=== PATIENT | male | born 1975 | race Caucasian/White ===

== ENCOUNTER → 2016-09-13 | Outpatient (CLI) | payer OTHER ==
[2016-09-13 11:05] LABS: ALBUMIN/GLOBULIN RATIO 1.14 (1.00-1.93); ALKALINE PHOSPHATASE 91 U/L (45-117); ALT/SGPT 30 U/L (12-78); ANION GAP 13 MEQ/L (8-16); AST/SGOT 30 U/L (15-37); BILIRUBIN,TOTAL 0.4 MG/DL (0.2-1.0); BLOOD UREA NITROGEN 8 MG/DL (7-18); CALCIUM LEVEL 8.2 MG/DL (8.5-10.1); CARBON DIOXIDE LEVEL 24 MEQ/L (21-32); CHLORIDE LEVEL 103 MEQ/L (98-107); CREATININE FOR GFR 1.01 MG/DL (0.70-1.30); GLOMERULAR FILTRATION RATE > 60.0 (>60); GLUCOSE, FASTING 136 MG/DL (70-105); MAGNESIUM LEVEL 1.8 MG/DL (1.8-2.4); POTASSIUM SERUM 4.1 MEQ/L (3.5-5.1); SODIUM LEVEL 140 MEQ/L (136-145); TOTAL PROTEIN 7.5 GM/DL (6.4-8.2)
--- NOTE | 2016-09-13 11:58 | REP ---
Are spine series: Five views. History: Low back pain. Findings: Lumbar vertebral body heights are preserved. Alignment is normal. There is degenerative disc disease at L5-S1 with a vacuum phenomenon, spurring and sclerosis of the endplates. Mild narrowing is seen at L3-4 and L4-5 as well. Discogenic spurring is seen at L3-4 and L1-2. No bony destructive lesion is seen. Pedicles and posterior elements are intact. Psoas margins are symmetric. The sacrum and SI joints are unremarkable. Impression: Degenerative disc disease most pronounced at L5-S1. Signed by Jayesh Finney MD 09/13/2016 12:26 P
[2016-09-13 14:46] LABS: CONTROL LINE INT CTR LINE PRESENT; HIV SCRN NEGATIVE (NEGATIVE); HIV SCRN1 NEGATIVE (NEGATIVE)
--- NOTE | 2016-09-13 16:56 | ECGEPIP ---
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
== END ==
LOC: M LAB 10:00
PROVIDERS: ATTEND Nurse Practitioner Family

== ENCOUNTER → 2016-11-22 | Outpatient (CLI) | payer OTHER ==
--- NOTE | 2016-11-23 09:07 | REP ---
MRI LUMBAR SPINE WITHOUT CONTRAST: 11/22/2016. CLINICAL HISTORY: Degenerative disc disease. Back pain. COMPARISON: X-ray 09/13/2016. TECHNIQUE: Sagittal T1, T2, STIR with axial T1-T2 sequences. FINDINGS: Normal lordosis is slightly reduced as on the radiograph. Vertebral body heights and marrow signal are normal throughout the lower thoracic, entire lumbar spine and the upper sacral segments. There is disc space narrowing and discogenic endplate change with loss of disc water signal a L5-S1. Lesser degrees of disc space narrowing and loss of water signal at L1-2 and L3-4. Disc water signal and height are maintained at L2-3 and L4-5. Conus terminates at the L1-2 disc level. Minimal disc bulges at T10-11 and T11-12 without spinal or foraminal stenosis. The T12-L1 disc level was unremarkable. At L1-2, there is a mild broad-based disc bulge with central disc protrusion. This flattens ventral thecal sac but does not cause any significant stenosis. The foramina are adequate. At L2-3, there is a minimal disc bulge flattening ventral thecal sac but no spinal or foraminal stenosis. At L3-4, there is a broad-based disc bulge with some flattening of the ventral thecal sac. This abuts the L4 nerve roots in the canal. Cross-sectional area is slightly decreased. There is ligamentum hypertrophy. Foramina show loss of perineural fat and are only borderline adequate. At L4-5, mild broad-based disc bulge flattening ventral thecal sac and abutting the L5 roots in the central canal but not causing any significant spinal stenosis. Foramina show loss of perineural fat and are marginally adequate. At L5-S1, there is a broad-based disc bulge with central disc protrusion and extrusion extending inferiorly behind the S1 vertebral body. This does not cause significant central canal stenosis. The foramina show loss of perineural fat with marginal osteophytes, disc bulge. The left L5 root shows mild compression. Tight is marginally adequate. IMPRESSION: 1. Multilevel degenerative disc disease with disc bulges at every level, protrusion at L1-2 as well as at L5-S1 centrally with small extrusion extending inferiorly from that disc level in the midline. Mild stenosis only at L3-4. The central canal and foramina are marginally adequate at multiple levels due to loss of perineural fat, facet hypertrophy and marginal osteophytes. Only the left L5 root shows mild compression in the foramen. No compression fracture or other acute finding. Signed by Fer Rucker MD 11/23/2016 10:12 A
== END ==
LOC: M RAD 17:40
PROVIDERS: ATTEND Nurse Practitioner Family
DX: M51.37 Other intervertebral disc degeneration, lumbosacral region (principal)

== ENCOUNTER 2017-06-27 12:17 | Emergency (ER) | payer OTHER ==
[~2017-06-27] VITALS: Ht 170.2 cm; Wt 78.2 kg
[2017-06-27] MEDS ORDERED: OMEP40CA2 (12:29)
[2017-06-27] MEDS ORDERED: IPRA3SP (12:29)
[2017-06-27] MEDS ORDERED: ALPR2TAB3 (12:29)
--- NOTE | 2017-06-27 13:35 | ED PDOC ---
Post-Departure Follow-Up PT SITTING CALMLY IN CHAIR IN EXAM ROOM, PLAYING ON CELL PHONE UPON WALKING IN THE ROOM. PT STATES HE HAS "FLU-LIKE SYMPTOMS" AND ALSO NOTED AN AREA OF REDNESS /SWELLING ON HIS NECK THIS MORNING. STATES HE TRIED TO POP IT LIKE A PIMPLE TODAY AND COULDN'T GET ANY DRAINAGE FROM IT. PT REPEATEDLY ASKING IF "IT'S MRSA " AND "WHEN WE ARE GOING TO CUT IT OPEN". EXPLAINED TO PT MORE THAN ONCE THAT THIS DOES NOT REQUIRE INCISION AND DRAINAGE AT THIS TIME. JEANA DOMINGUEZ PA-C Jun 27, 2017 13:35
[2017-06-27] MEDS ORDERED: ZITHTAB PO (14:24)
[2017-06-27] MEDS ORDERED: TESS100C PO (14:24)
[2017-06-27 14:31] VITALS: BP 140/83
--- NOTE | 2017-06-27 20:26 | REP ---
Chest x-ray: Two views. History: Cough. Comparison study: December 08, 2015. Findings: There is a new infiltrate in the superior segment left lower lobe consistent with pneumonia. Lung mckeon are otherwise clear. Heart is not enlarged. Pulmonary vasculature is not increased. There is no evidence of pleural effusion. No significant bony abnormality is seen. Impression: Left lower lobe pneumonia. Signed by Jayesh Finney MD 06/28/2017 08:07 A
== END 2017-06-27 14:39 | disposition home or self-care (01) ==
LOC: M ED 12:17
DX: J18.1 Lobar pneumonia, unspecified organism (principal); F41.9 Anxiety disorder, unspecified; J30.89 Other allergic rhinitis; Z87.891 Personal history of nicotine dependence; Z79.899 Other long term (current) drug therapy

== ENCOUNTER → 2017-12-06 | Outpatient (CLI) | payer OTHER | LOC: M OUTALCOH 11:23 | DX: Z13.89 Encounter for screening for other disorder (principal); F10.10 Alcohol abuse, uncomplicated ==

== ENCOUNTER 2017-12-13 11:35 | Outpatient (RCR) | payer OTHER | END 2018-01-05 | LOC: M OUTALCOH 11:35 | DX: Z03.89 Encounter for observation for other suspected diseases and conditions ruled out (principal) ==

== ENCOUNTER → 2018-01-17 | Outpatient (CLI) | payer OTHER | LOC: M OUTALCOH 12:49 | DX: Z13.9 Encounter for screening, unspecified (principal); F10.20 Alcohol dependence, uncomplicated ==

== ENCOUNTER 2018-01-29 08:17 | Outpatient (RCR) | payer OTHER | END 2018-02-05 | LOC: M OUTALCOH 08:17 | DX: F10.20 Alcohol dependence, uncomplicated (principal); Z72.0 Tobacco use ==

== ENCOUNTER 2018-03-12 16:00 | Outpatient (RCR) | payer OTHER | END 2018-04-07 | LOC: M OUTALCOH 03-19 16:00 | DX: F10.20 Alcohol dependence, uncomplicated (principal); Z72.0 Tobacco use ==

== ENCOUNTER → 2018-05-07 | Outpatient (CLI) | payer OTHER | LOC: M OUTALCOH 14:27 | DX: F10.20 Alcohol dependence, uncomplicated (principal); Z72.0 Tobacco use ==

== ENCOUNTER 2018-06-04 08:02 | Outpatient (RCR) | payer OTHER | END 2018-06-07 | LOC: M OUTALCOH 08:02 | DX: F10.20 Alcohol dependence, uncomplicated (principal); Z72.0 Tobacco use ==

== ENCOUNTER 2018-07-03 16:00 | Outpatient (RCR) | payer OTHER ==
[~2018-07-03 16:00] MED LIST: ALPR2TAB3; IPRA3SP; OMEP40CA2; TESS100C PO; ZITHTAB PO
== END 2018-07-08 ==
LOC: M OUTALCOH 16:00
PROVIDERS: ATTEND Psychiatry & Neurology Psychiatry
DX: F10.20 Alcohol dependence, uncomplicated (principal); Z72.0 Tobacco use

== ENCOUNTER 2018-07-17 19:44 | Emergency (ER) | payer OTHER ==
[~2018-07-17] VITALS: Ht 170.2 cm; Wt 78.2 kg
[2018-07-17] MEDS ORDERED: NS 1,000 ML IV ONE (20:30)
[2018-07-17 20:50] LABS: ACETAMINOPHEN LEVEL < 2.0 UG/ML (10.0-30.0); BLOOD UREA NITROGEN 10 MG/DL (7-18); CALCIUM LEVEL 8.9 MG/DL (8.5-10.1); CARBON DIOXIDE LEVEL 26 MEQ/L (21-32); CHLORIDE LEVEL 101 MEQ/L (98-107); CREATININE FOR GFR 1.02 MG/DL (0.70-1.30); ETHYL ALCOHOL (ETHANOL) 0.219 % (0.000-0.010); GLOMERULAR FILTRATION RATE > 60.0 (>60); GLUCOSE, FASTING 93 MG/DL (70-100); POTASSIUM SERUM 3.2 MEQ/L (3.5-5.1); SALICYLATE LEVEL < 1.7 MG/DL (5.0-30.0); SODIUM LEVEL 137 MEQ/L (136-145)
[2018-07-17 20:51] LABS: HEMATOCRIT 43.8 % (42.0-52.0); HEMOGLOBIN 15.4 g/dl (13.5-17.5); MEAN CORPUSCULAR HEMOGLOBIN 31.8 pg (27.0-33.0); MEAN CORPUSCULAR HGB CONC 35.2 g/dl (32.0-36.5); MEAN CORPUSCULAR VOLUME 90.3 fl (80.0-96.0); PLATELET COUNT, AUTOMATED 127 10^3/uL (150-450); RED BLOOD COUNT 4.85 10^6/uL (4.30-6.10); WHITE BLOOD COUNT 6.8 10^3/uL (4.0-10.0)
[2018-07-17 21:03] LABS: AMPHETAMINES LEVEL URINE NEGATIVE (NEGATIVE); BARBITURATES URINE NEGATIVE (NEGATIVE); BENZODIAZEPINES URINE POSITIVE (NEGATIVE); CANNABINOIDS URINE POSITIVE (NEGATIVE); COCAINE METABOLITE URINE NEGATIVE (NEGATIVE); METHADONE URINE NEGATIVE (NEGATIVE); OPIATES URINE NEGATIVE (NEGATIVE); PHENCYCLIDINE URINE NEGATIVE (NEGATIVE)
[2018-07-17 21:14] VITALS: BP 137/84
== END 2018-07-17 22:38 | disposition home or self-care (01) ==
LOC: EDBD 19:44 → M ED 19:44
DX: F10.10 Alcohol abuse, uncomplicated (principal); Y90.1 Blood alcohol level of 20-39 mg/100 ml; F12.10 Cannabis abuse, uncomplicated; Z79.899 Other long term (current) drug therapy; J30.89 Other allergic rhinitis; F17.210 Nicotine dependence, cigarettes, uncomplicated
CPT/HCPCS: 36415; 80048; 80307; 85027; 99284; G0480

== ENCOUNTER 2018-08-07 13:54 | Outpatient (RCR) | payer OTHER | END 2018-08-08 | LOC: M OUTALCOH 13:54 | PROVIDERS: ATTEND Psychiatry & Neurology Psychiatry | DX: F10.20 Alcohol dependence, uncomplicated (principal); Z72.0 Tobacco use ==

== ENCOUNTER 2018-08-28 15:00 | Outpatient (RCR) | payer OTHER | END 2018-09-05 | LOC: M OUTALCOH 15:00 | PROVIDERS: ATTEND Psychiatry & Neurology Psychiatry | DX: F10.20 Alcohol dependence, uncomplicated (principal); Z72.0 Tobacco use ==

== ENCOUNTER → 2018-11-18 | Outpatient (CLI) | payer OTHER | LOC: M OUTALCOH 08:04 | PROVIDERS: ATTEND Psychiatry & Neurology Psychiatry | DX: F10.20 Alcohol dependence, uncomplicated (principal) ==

== ENCOUNTER 2018-11-27 08:20 | Outpatient (RCR) | payer OTHER | END 2018-12-06 | LOC: M OUTALCOH 08:20 | PROVIDERS: ATTEND Psychiatry & Neurology Psychiatry | DX: F10.20 Alcohol dependence, uncomplicated (principal); Z72.0 Tobacco use ==

== ENCOUNTER 2019-05-17 10:11 | Emergency (ER) | payer MEDICAID, OTHER ==
[~2019-05-17] VITALS: Ht 170.2 cm; Wt 83.0 kg
[~2019-05-17 10:11] MED LIST changes: -OMEP40CA2; +OMEP40CA97
[2019-05-17] MEDS ORDERED: CLON-412 PO (10:18)
[2019-05-17] MEDS ORDERED: NAPR500T6 PO (10:26)
[2019-05-17] MEDS ORDERED: CENT1TAB2 PO (10:26)
[2019-05-17] MEDS ORDERED: KETOROLAC 30 MG/ML VIAL (J1885) IV ONE (10:45)
[2019-05-17] MEDS ORDERED: ONDANSETRON 4MG/2ML VIAL (J2405) IV ONE (10:45)
[2019-05-17] MEDS ORDERED: NS 1,000 ML IV ONE (10:45)
[2019-05-17 11:19] LABS: BASO # 0.1 10^3/uL (0.0-0.2); BASO % 1.1 % (0.0-1.0); EOS # 0.3 10^3/uL (0.0-0.5); EOS % 4.4 % (0.0-3.0); HEMATOCRIT 44.2 % (42.0-52.0); HEMOGLOBIN 15.8 g/dl (13.5-17.5); LYMPH # 2.6 10^3/uL (1.5-5.0); LYMPH % 40.2 % (24.0-44.0); MEAN CORPUSCULAR HEMOGLOBIN 31.9 pg (27.0-33.0); MEAN CORPUSCULAR HGB CONC 35.7 g/dl (32.0-36.5); MEAN CORPUSCULAR VOLUME 89.3 fl (80.0-96.0); MONO # 0.5 10^3/uL (0.0-0.8); MONO % 7.8 % (0.0-5.0); NEUTROPHILS % 46.3 % (36.0-66.0); PLATELET COUNT, AUTOMATED 169 10^3/uL (150-450); RED BLOOD COUNT 4.95 10^6/uL (4.30-6.10); WHITE BLOOD COUNT 6.4 10^3/uL (4.0-10.0)
--- NOTE | 2019-05-17 11:27 | REPVR ---
PROCEDURE INFORMATION: Exam: CT Cervical Spine Without Contrast Exam date and time: 05/17/2019 10:55 AM Clinical history: 43 years old, male; Radicular pain (radiculopathy); Location of radicular pain not specified; Additional info: Neck pain with bilateral arm numbness TECHNIQUE: Imaging protocol: Computed tomography images of the cervical spine without contrast. Radiation optimization: All CT scans at this facility use at least one of these dose optimization techniques: automated exposure control; mA and/or kV adjustment per patient size (includes targeted exams where dose is matched to clinical indication); or iterative reconstruction. COMPARISON: No relevant prior studies available. FINDINGS: Vertebrae: No acute fracture. Normal alignment. Discs/Spinal canal/Neural foramina: There is straightening of the normal cervical lordosis. Moderate degenerative disc disease from C5-C7 with posterior disc osteophyte complexes contributing to minimal spinal canal narrowing. At C5-6, there is moderate right and mild left osseous neural foraminal narrowing prominently from uncovertebral hypertrophy. At C6-7, there is mild to moderate bilateral osseous neural foraminal narrowing predominantly from uncovertebral hypertrophy. Soft tissues: Unremarkable. Lungs: Lung apices are normal. IMPRESSION: No acute findings. Mild to moderate degenerative change in the lower cervical spine as described. If there are progressive myelopathic symptoms and intervention is considered, MR could be performed for further evaluation. Electronically signed by: John Pearce On 05/17/2019 11:26:49 AM
[2019-05-17 11:48] LABS: ALBUMIN 4.5 GM/DL (3.2-5.2); ALT/SGPT 27 U/L (12-78); BILIRUBIN,TOTAL 0.7 MG/DL (0.2-1.0); BLOOD UREA NITROGEN 15 MG/DL (7-18); CALCIUM LEVEL 9.1 MG/DL (8.5-10.1); CARBON DIOXIDE LEVEL 28 MEQ/L (21-32); CHLORIDE LEVEL 108 MEQ/L (98-107); CREATININE FOR GFR 0.96 MG/DL (0.70-1.30); GLOMERULAR FILTRATION RATE > 60.0 (>60); GLUCOSE, FASTING 88 MG/DL (70-100); LIPASE 90 U/L (73-393); POTASSIUM SERUM 4.8 MEQ/L (3.5-5.1); SODIUM LEVEL 139 MEQ/L (136-145); TOTAL PROTEIN 8.1 GM/DL (6.4-8.2)
[2019-05-17] MEDS ORDERED: MOBI4TAB PO (11:51)
[2019-05-17 11:59] VITALS: BP 142/85
--- NOTE | 2019-05-17 13:55 | REP ---
CT of the abdomen and pelvis without IV or bowel contrast for diffuse abdominal pain and constipation: There are no comparisons. The visualized lung mckeon are unremarkable. The unenhanced hepatic parenchyma is homogeneous. The gallbladder, pancreas and spleen are normal size and unremarkable. The adrenals are unremarkable. The unenhanced kidneys are unremarkable. The abdominal aorta is unremarkable. There is no periaortic adenopathy or mass. There is no bowel distension or obstruction. The mesentery is unremarkable. There is no ascites. Pelvis: The the patient has an appendectomy. There is a diverticulum of the cecum without diverticulitis. There are occasional sigmoid colon diverticula without diverticulitis. There is no ascites or adenopathy. The bladder is unremarkable. There is degenerative disc disease in the lumbar spine L5 S1. Impression: There is a cecal diverticulum and there are sigmoid colon diverticuli without diverticulitis. Otherwise, negative CT of the abdomen and pelvis. Electronically Signed by David Hall MD 05/17/2019 01:47 P
--- NOTE | 2019-05-17 13:55 | REP ---
Thoracic spine three views: Comparison is a PA and lateral chest dated 12/08/2015. There is mild scoliosis convex left in the upper thoracic and this is unchanged. There is mild grade 1 compression deformity of the approximate T8-T9 vertebral bodies as an interval change. Vertebral body heights, interspacing alignment are otherwise unremarkable. Impression: Chronic mild scoliosis. Mild grade 1 compression deformities of the approximate T 8-T9 vertebral bodies as an interval change. Electronically Signed by David Hall MD 05/17/2019 01:47 P
== END 2019-05-17 12:01 | disposition home or self-care (01) ==
LOC: M ED 10:11
DX: K42.9 Umbilical hernia without obstruction or gangrene (principal); K57.30 Diverticulosis of large intestine without perforation or abscess without bleeding; M50.93 Cervical disc disorder, unspecified, cervicothoracic region; M51.36 Other intervertebral disc degeneration, lumbar region; R20.2 Paresthesia of skin; Z87.891 Personal history of nicotine dependence; F10.10 Alcohol abuse, uncomplicated; R07.9 Chest pain, unspecified; I10 Essential (primary) hypertension; K21.9 Gastro-esophageal reflux disease without esophagitis; F41.9 Anxiety disorder, unspecified; M51.84 Other intervertebral disc disorders, thoracic region; J30.89 Other allergic rhinitis; Z79.899 Other long term (current) drug therapy; Z88.8 Allergy status to other drugs, medicaments and biological substances

== ENCOUNTER → 2020-01-16 | Outpatient (CLI) | payer OTHER ==
[~2020-01-16] MED LIST changes: +ALPR2TAB3 PO; +CENT1TAB2 PO; +CLON-412 PO; +HYDR-3715 PO; +MOBI4TAB PO; +NAPR500T6 PO; +VITA50005 PO; +ZOLO25TA PO
== END ==
LOC: M LABSMTC 13:50
PROVIDERS: ATTEND Anesthesiology
DX: Z01.818 Encounter for other preprocedural examination (principal); Z11.59 Encounter for screening for other viral diseases
CPT/HCPCS: C9803; U0003

== ENCOUNTER 2020-01-20 08:51 | Day surgery (SDC) | payer OTHER ==
[~2020-01-20] VITALS: Ht 170.2 cm; Wt 78.9 kg
[~2020-01-20 08:51] MED LIST changes: -HYDR-3715 PO; +LIDOCAINE 1% MDV 20ML VIAL SQ PRN; +LR 1,000 ML IV ONE; +ceFAZolin SOD 1 GM in D5W MINI-BAG PLUS 50 ML IV ONE
[2020-01-20] MEDS ORDERED: propofoL 200 MG/20 ML VIAL As Ordered ONE (09:08)
[2020-01-20] MEDS ORDERED: ONDANSETRON 4MG/2ML VIAL As Ordered ONE (09:08)
[2020-01-20] MEDS ORDERED: ROCURONIUM BROMIDE 50 MG/5 ML VIAL As Ordered ONE (09:08)
[2020-01-20] MEDS ORDERED: dexameTHASONE 4 MG/ML 1ML VIAL (J1100 PER 1MG) As Ordered ONE (09:08)
[2020-01-20] MEDS ORDERED: LIDOCAINE 2% 100MG/5ML SDV (FOR ANES.) As Ordered ONE (09:08)
[2020-01-20] MEDS ORDERED: HYDROmorphone HCL 2 MG/ML 1ML VIAL (J1170) As Ordered ONE (09:09)
[2020-01-20] MEDS ORDERED: fentaNYL 100 MCG/2 ML INJECTION (J3010) As Ordered ONE (09:09)
[2020-01-20] MEDS ORDERED: MIDAZOLAM INJ 2MG/2ML VIAL (J2250 PER 1MG) As Ordered ONE (09:13)
[2020-01-20] MEDS ORDERED: BUPIVACAINE HCL 0.25% 10ML VIAL As Ordered ONE (09:48)
[2020-01-20] MEDS ORDERED: BUPIVACAINE/EPIN 0.25% 30 ML VIAL As Ordered ONE (09:48)
[2020-01-20] MEDS ORDERED: BUPIVACAINE LIPOSOME/PF 1.3% 20ML VIAL (13.3MG/ML)(EXPAREL)(C9290 PER1MG) As Ordered ONE (09:49)
[2020-01-20] MEDS ORDERED: ACETAMINOPHEN 1000MG 100ML IV BTL (OFIRMEV) (J0131 PER 10MG) As Ordered ONE (10:25)
[2020-01-20] MEDS ORDERED: LR 1,000 ML IV SCH (11:30)
[2020-01-20] MEDS ORDERED: NS 1,000 ML IV SCH (11:30)
[2020-01-20] MEDS ORDERED: NORCO, ANEXSIA 5/325MG TABLET (HYDROcodone/ACETAMINOPHEN) PO PRN (11:30)
[2020-01-20] MEDS ORDERED: METOCLOPRAMIDE INJ 10MG/2ML VIAL (J2765 PER 1) IV PRN (11:30)
[2020-01-20] MEDS ORDERED: ONDANSETRON 4MG/2ML VIAL IV PRN (11:30)
[2020-01-20] MEDS ORDERED: fentaNYL 100 MCG/2 ML INJECTION (J3010) IV PRN (11:30)
[2020-01-20 12:00] VITALS: BP 138/85
[2020-01-20] MEDS ORDERED: KETOROLAC 30 MG/ML 1ML VIAL IV SCH (12:00)
[2020-01-20] MEDS ORDERED: HYDR-3715 PO (12:28)
== END 2020-01-20 12:02 | disposition home or self-care (01) ==
LOC: M SDC 08:51
PROVIDERS: ATTEND Surgery
DX: K42.0 Umbilical hernia with obstruction, without gangrene (principal); I10 Essential (primary) hypertension; K21.9 Gastro-esophageal reflux disease without esophagitis; Z87.891 Personal history of nicotine dependence; F41.9 Anxiety disorder, unspecified; Z79.899 Other long term (current) drug therapy; Z88.8 Allergy status to other drugs, medicaments and biological substances
CPT/HCPCS: 49587; 88302; C9290; J0131; J0690; J1100; J1170; J2250; J2405; J3010

== ENCOUNTER → 2020-06-11 | Outpatient (REF) | payer OTHER ==
[~2020-06-11] MED LIST changes: +HYDR-3715 PO; -LIDOCAINE 1% MDV 20ML VIAL SQ PRN; -LR 1,000 ML IV ONE; -ceFAZolin SOD 1 GM in D5W MINI-BAG PLUS 50 ML IV ONE
[2020-06-11 22:09] LABS: APPEARANCE, URINE HAZY (CLEAR); BACTERIA, URINE AUTO NEGATIVE (NEGATIVE); BILIRUBIN, URINE AUTO NEGATIVE (NEGATIVE); BLOOD, URINE BLOOD NEGATIVE (NEGATIVE); COLOR, URINE YELLOW (YELLOW); GLUCOSE, URINE (UA) AUTO NEGATIVE (NEGATIVE); KETONE, URINE AUTO NEGATIVE (NEGATIVE); LEUKOCYTE ESTERASE, URINE AUTO 2+ (NEGATIVE); MUCUS, URINE SMALL (NEGATIVE); NITRITE, URINE AUTO NEGATIVE (NEGATIVE); PROTEIN, URINE AUTO NEGATIVE (NEGATIVE); RBC, URINE AUTO 1 /HPF (0-3); SPECIFIC GRAVITY URINE AUTO 1.019 (1.002-1.035); SQUAMOUS EPITHELIAL CELL UR AU 0 /HPF (0-6); UROBILINOGEN, URINE AUTO 0.2 mg/dL (0.0-2.0); WBC, URINE AUTO 34 /HPF (0-3)
== END ==
LOC: M LAB REF 21:40
PROVIDERS: ATTEND Physician Assistant Medical
DX: N39.0 Urinary tract infection, site not specified (principal)

== ENCOUNTER 2021-01-19 17:59 | Emergency (ER) | payer OTHER ==
[~2021-01-19] VITALS: Ht 170.2 cm; Wt 84.1 kg
[~2021-01-19 17:59] MED LIST changes: +ERGO500029 PO; +OMEP40CA4; -OMEP40CA97; -VITA50005 PO
[2021-01-19] MEDS ORDERED: NS 1,000 ML IV ONE (18:10)
[2021-01-19 18:27] LABS: BASO # 0.1 10^3/uL (0.0-0.2); BASO % 0.8 % (0.0-1.0); EOS # 0.2 10^3/uL (0.0-0.5); EOS % 2.6 % (0.0-3.0); HEMATOCRIT 47.5 % (42.0-52.0); HEMOGLOBIN 16.9 g/dl (13.5-17.5); LYMPH # 3.1 10^3/uL (1.5-5.0); LYMPH % 36.5 % (24.0-44.0); MEAN CORPUSCULAR HEMOGLOBIN 32.9 pg (27.0-33.0); MEAN CORPUSCULAR HGB CONC 35.6 g/dl (32.0-36.5); MEAN CORPUSCULAR VOLUME 92.4 fl (80.0-96.0); MONO # 0.6 10^3/uL (0.0-0.8); MONO % 7.3 % (2.0-8.0); NEUTROPHILS # 4.4 10^3/uL (1.5-8.5); NEUTROPHILS % 52.6 % (36.0-66.0); PLATELET COUNT, AUTOMATED 120 10^3/uL (150-450); RED BLOOD COUNT 5.14 10^6/uL (4.30-6.10); WHITE BLOOD COUNT 8.4 10^3/uL (4.0-10.0)
--- NOTE | 2021-01-19 18:38 | REP ---
INDICATION: CHEST PAIN. COMPARISON: 06/27/2017 the latest prior FINDINGS: The technique utilized in obtaining the radiograph has magnified the cardiac silhouette and accentuated the interstitial markings. The superior mediastinal structures are midline. The cardiac silhouette is unremarkable in size, shape, and position. The diaphragmatic surfaces of the lungs are regular, and the costophrenic angles are clear. The pulmonary mckeon are clear. The imaged osseous structures are intact. IMPRESSION: There is no acute cardiopulmonary disease. <Electronically signed by Sixto Veloz > 01/19/21 [id number]
[2021-01-19 18:58] LABS: ALBUMIN 4.1 GM/DL (3.2-5.2); ALT/SGPT 37 U/L (12-78); BILIRUBIN,DIRECT < 0.1 MG/DL (0.0-0.2); BILIRUBIN,TOTAL 0.3 MG/DL (0.2-1.0); LIPASE 110 U/L (73-393); MAGNESIUM LEVEL 2.2 MG/DL (1.8-2.4); NT-PRO BNP 29 PG/ML (<125)
[2021-01-19 19:15] VITALS: BP 142/84
--- NOTE | 2021-01-19 20:58 | ECGEPIP ---
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
--- NOTE | 2021-01-19 21:00 | ECGEPIP ---
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
== END 2021-01-19 20:30 | disposition home or self-care (01) ==
LOC: EDBD 17:59 → M ED 17:59
DX: I48.0 Paroxysmal atrial fibrillation (principal); I48.91 Unspecified atrial fibrillation; I10 Essential (primary) hypertension; G47.33 Obstructive sleep apnea (adult) (pediatric); K21.9 Gastro-esophageal reflux disease without esophagitis; F17.200 Nicotine dependence, unspecified, uncomplicated; Z79.899 Other long term (current) drug therapy; Z88.8 Allergy status to other drugs, medicaments and biological substances; J30.89 Other allergic rhinitis

== ENCOUNTER 2021-03-04 00:13 | Emergency (ER) | payer OTHER ==
[~2021-03-04] VITALS: Ht 170.2 cm; Wt 81.8 kg
[2021-03-04 00:46] LABS: BASO # 0.1 10^3/uL (0.0-0.2); BASO % 0.8 % (0.0-1.0); EOS # 0.3 10^3/uL (0.0-0.5); EOS % 3.9 % (0.0-3.0); HEMOGLOBIN 16.5 g/dl (13.5-17.5); LYMPH # 3.5 10^3/uL (1.5-5.0); LYMPH % 52.3 % (24.0-44.0); MEAN CORPUSCULAR HEMOGLOBIN 32.5 pg (27.0-33.0); MEAN CORPUSCULAR HGB CONC 35.1 g/dl (32.0-36.5); MEAN CORPUSCULAR VOLUME 92.7 fl (80.0-96.0); MONO # 0.7 10^3/uL (0.0-0.8); MONO % 10.1 % (2.0-8.0); NEUTROPHILS # 2.2 10^3/uL (1.5-8.5); NEUTROPHILS % 32.6 % (36.0-66.0); PLATELET COUNT, AUTOMATED 126 10^3/uL (150-450); RED BLOOD COUNT 5.07 10^6/uL (4.30-6.10); WHITE BLOOD COUNT 6.6 10^3/uL (4.0-10.0)
[2021-03-04] MEDS ORDERED: NS 1,000 ML IV ONE (00:50)
[2021-03-04 01:19] LABS: BLOOD UREA NITROGEN 8 MG/DL (7-18); CARBON DIOXIDE LEVEL 23 MEQ/L (21-32); CHLORIDE LEVEL 109 MEQ/L (98-107); CREATININE FOR GFR 0.96 MG/DL (0.70-1.30); GLOMERULAR FILTRATION RATE > 60.0 (>60); GLUCOSE, FASTING 92 MG/DL (70-100); POTASSIUM SERUM 3.8 MEQ/L (3.5-5.1); SODIUM LEVEL 141 MEQ/L (136-145)
[2021-03-04 01:20] LABS: CALCIUM LEVEL 8.7 MG/DL (8.5-10.1); CK-MB VALUE MASS 1.4 NG/ML (<3.6); CPK CREATINE PHOSPHOKINASE 269 U/L (39-308); ETHYL ALCOHOL (ETHANOL) 0.017 % (0.000-0.010); MAGNESIUM LEVEL 2.1 MG/DL (1.8-2.4); MB/CK RELATIVE INDEX 0.52 (< OR =4); TROPONIN I < 0.02 NG/ML (< 0.10)
[2021-03-04 01:32] LABS: AMPHETAMINES LEVEL URINE NEGATIVE (NEGATIVE); BARBITURATES URINE NEGATIVE (NEGATIVE); BENZODIAZEPINES URINE NEGATIVE (NEGATIVE); CANNABINOIDS URINE NEGATIVE (NEGATIVE); COCAINE METABOLITE URINE NEGATIVE (NEGATIVE); METHADONE URINE NEGATIVE (NEGATIVE); OPIATES URINE NEGATIVE (NEGATIVE); PHENCYCLIDINE URINE NEGATIVE (NEGATIVE)
--- NOTE | 2021-03-04 01:37 | REPVR ---
PROCEDURE INFORMATION: Exam: XR Chest Exam date and time: 03/04/2021 12:30 AM Age: 45 years old Clinical indication: Other: Chest pain TECHNIQUE: Imaging protocol: XR of the chest. Views: 1 view. COMPARISON: [facility] PORTABLE CHEST X-RAY 01/19/2021 6:13 PM FINDINGS: Lungs: Clear. No consolidation. Pleural spaces: No pleural effusion. No pneumothorax. Heart/Mediastinum: Unremarkable. No cardiomegaly. Bones/joints: Unremarkable. IMPRESSION: No acute findings. Electronically signed by: Betito Dukes On 03/04/2021 01:36:51 AM
[2021-03-04] MEDS ORDERED: ASPI81TA26 PO (03:41)
[2021-03-04 03:45] VITALS: BP 129/65
--- NOTE | 2021-03-04 21:19 | ECGEPIP ---
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
== END 2021-03-04 04:02 | disposition home or self-care (01) ==
LOC: M ED 00:13
DX: I48.0 Paroxysmal atrial fibrillation (principal); R94.31 Abnormal electrocardiogram [ECG] [EKG]; Z79.899 Other long term (current) drug therapy

== ENCOUNTER 2021-04-06 16:53 | Emergency (ER) | payer OTHER ==
[~2021-04-06] VITALS: Ht 170.2 cm; Wt 82.4 kg
[~2021-04-06 16:53] MED LIST changes: +ASPI81TA26 PO
[2021-04-06 17:35] LABS: BASO # 0.1 10^3/uL (0.0-0.2); BASO % 0.7 % (0.0-1.0); EOS # 0.2 10^3/uL (0.0-0.5); EOS % 2.5 % (0.0-3.0); HEMATOCRIT 49.1 % (42.0-52.0); HEMOGLOBIN 17.5 g/dl (13.5-17.5); LYMPH % 35.2 % (24.0-44.0); MEAN CORPUSCULAR HEMOGLOBIN 32.8 pg (27.0-33.0); MEAN CORPUSCULAR HGB CONC 35.6 g/dl (32.0-36.5); MEAN CORPUSCULAR VOLUME 92.1 fl (80.0-96.0); MONO # 0.6 10^3/uL (0.0-0.8); MONO % 7.3 % (2.0-8.0); NEUTROPHILS # 4.6 10^3/uL (1.5-8.5); NEUTROPHILS % 54.1 % (36.0-66.0); PLATELET COUNT, AUTOMATED 176 10^3/uL (150-450); RED BLOOD COUNT 5.33 10^6/uL (4.30-6.10); WHITE BLOOD COUNT 8.6 10^3/uL (4.0-10.0)
[2021-04-06] MEDS ORDERED: NS 1,000 ML IV ONE (17:35)
[2021-04-06 17:43] LABS: INR 0.83; PROTHROMBIN TIME 11.8 SECONDS (12.7-14.5)
[2021-04-06 17:44] VITALS: BP 207/127
--- NOTE | 2021-04-06 17:53 | REP ---
INDICATION: CHEST PAIN. COMPARISON: 03/04/2021 TECHNIQUE: Portable FINDINGS: The technique utilized in obtaining the radiograph has magnified the cardiac silhouette and accentuated the interstitial markings. The superior mediastinal structures are midline. The cardiac silhouette is unremarkable in size, shape, and position. The diaphragmatic surfaces of the lungs are regular, and the costophrenic angles are clear. The pulmonary mckeon are clear. The imaged osseous structures are intact. IMPRESSION: There is no acute cardiopulmonary disease. No significant change compared to the prior exam. <Electronically signed by Sixto Veloz > 04/06/21 [id number]
[2021-04-06 18:20] LABS: ALT/SGPT 30 U/L (12-78); BILIRUBIN,DIRECT 0.1 MG/DL (0.0-0.2); BILIRUBIN,TOTAL 0.3 MG/DL (0.2-1.0); CK-MB VALUE MASS 2.5 NG/ML (<3.6); CPK CREATINE PHOSPHOKINASE 180 U/L (39-308); LIPASE 87 U/L (73-393); MB/CK RELATIVE INDEX 1.39 (< OR =4); TOTAL PROTEIN 8.4 GM/DL (6.4-8.2); TROPONIN I < 0.02 NG/ML (< 0.10)
[2021-04-06 20:00] VITALS: BP 135/90
--- NOTE | 2021-04-07 07:48 | ECGEPIP ---
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
--- NOTE | 2021-04-07 07:51 | ECGEPIP ---
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
== END 2021-04-06 20:11 | disposition home or self-care (01) ==
LOC: M ED 16:53
DX: I48.0 Paroxysmal atrial fibrillation (principal); K21.9 Gastro-esophageal reflux disease without esophagitis; F17.200 Nicotine dependence, unspecified, uncomplicated; Z79.82 Long term (current) use of aspirin; Z79.899 Other long term (current) drug therapy; J30.89 Other allergic rhinitis; Z88.8 Allergy status to other drugs, medicaments and biological substances

== ENCOUNTER 2021-11-08 20:41 | Emergency (ER) | payer OTHER ==
[~2021-11-08] VITALS: Ht 170.2 cm; Wt 68.2 kg
[2021-11-08] MEDS ORDERED: NS 1,000 ML IV ONE (20:50)
[2021-11-08 21:16] LABS: BASO # 0.1 10^3/uL (0.0-0.2); BASO % 0.7 % (0.0-1.0); EOS # 0.2 10^3/uL (0.0-0.5); EOS % 2.3 % (0.0-3.0); HEMATOCRIT 43.6 % (42.0-52.0); HEMOGLOBIN 15.5 g/dl (13.5-17.5); LYMPH # 3.9 10^3/uL (1.5-5.0); LYMPH % 48.3 % (24.0-44.0); MEAN CORPUSCULAR HEMOGLOBIN 32.6 pg (27.0-33.0); MEAN CORPUSCULAR HGB CONC 35.6 g/dl (32.0-36.5); MEAN CORPUSCULAR VOLUME 91.6 fl (80.0-96.0); MONO # 0.7 10^3/uL (0.0-0.8); NEUTROPHILS # 3.2 10^3/uL (1.5-8.5); NEUTROPHILS % 39.6 % (36.0-66.0); PLATELET COUNT, AUTOMATED 147 10^3/uL (150-450); RED BLOOD COUNT 4.76 10^6/uL (4.30-6.10); WHITE BLOOD COUNT 8.1 10^3/uL (4.0-10.0)
[2021-11-08 21:29] LABS: ABG pH (ARTERIAL) 7.303 UNITS (7.350-7.450)
[2021-11-08 21:30] LABS: ABG BASE EXCESS -7.4 (-2.0-2.0); ABG HCO3 18.3 MEQ/L (22.0-26.0); ABG O2 SATURATION 96.7 % (95.0-99.0); ABG PARTIAL PRESSURE CO2 37.7 mmHg (35.0-45.0); ABG PARTIAL PRESSURE O2 91.3 mmHg (75.0-100.0); ABG STANDARD HCO3 18.5 MEQ/L (22.0-26.0); ABG TOTAL CO2 19.4 MEQ/L (22.0-29.0)
[2021-11-08 21:41] LABS: ACETAMINOPHEN LEVEL < 2.0 UG/ML (10.0-30.0); ALBUMIN 4.3 GM/DL (3.2-5.2); ALT/SGPT 55 U/L (12-78); BILIRUBIN,DIRECT 0.2 MG/DL (0.0-0.2); BILIRUBIN,TOTAL 0.5 MG/DL (0.2-1.0); BLOOD UREA NITROGEN 9 MG/DL (7-18); CALCIUM LEVEL 9.1 MG/DL (8.5-10.1); CARBON DIOXIDE LEVEL 21 MEQ/L (21-32); CHLORIDE LEVEL 106 MEQ/L (98-107); CREATININE FOR GFR 0.99 MG/DL (0.70-1.30); ETHYL ALCOHOL (ETHANOL) 0.243 % (0.000-0.010); GLOMERULAR FILTRATION RATE > 60.0 (>60); GLUCOSE, FASTING 136 MG/DL (70-100); POTASSIUM SERUM 3.3 MEQ/L (3.5-5.1); SALICYLATE LEVEL < 1.7 MG/DL (5.0-30.0); SODIUM LEVEL 140 MEQ/L (136-145); TOTAL PROTEIN 8.1 GM/DL (6.4-8.2)
[2021-11-08 22:54] LABS: AMPHETAMINES LEVEL URINE NEGATIVE (NEGATIVE); BARBITURATES URINE NEGATIVE (NEGATIVE); BENZODIAZEPINES URINE NEGATIVE (NEGATIVE); CANNABINOIDS URINE NEGATIVE (NEGATIVE); COCAINE METABOLITE URINE NEGATIVE (NEGATIVE); METHADONE URINE NEGATIVE (NEGATIVE); OPIATES URINE NEGATIVE (NEGATIVE); PHENCYCLIDINE URINE NEGATIVE (NEGATIVE)
[2021-11-08 23:53] VITALS: BP 132/90
== END 2021-11-08 23:40 | disposition left against medical advice (07) ==
LOC: M ED 20:41 → EDBD 20:41 → M ED 23:40
DX: T40.1X1A Poisoning by heroin, accidental (unintentional), initial encounter (principal); F10.129 Alcohol abuse with intoxication, unspecified; Z53.9 Procedure and treatment not carried out, unspecified reason; R00.0 Tachycardia, unspecified; I45.19 Other right bundle-branch block; K21.9 Gastro-esophageal reflux disease without esophagitis; F17.200 Nicotine dependence, unspecified, uncomplicated; Z88.8 Allergy status to other drugs, medicaments and biological substances; Z79.899 Other long term (current) drug therapy

== ENCOUNTER → 2022-08-18 | Outpatient (CLI) | payer MEDICAID | LOC: M EKG 07:50 | PROVIDERS: ATTEND Orthopaedic Surgery | DX: Z01.818 Encounter for other preprocedural examination (principal) ==

== ENCOUNTER → 2023-02-01 | Outpatient (CLI) | payer MEDICAID, OTHER ==
[2023-02-01 17:20] LABS: HEMATOCRIT 48.1 % (42.0-52.0); HEMOGLOBIN 16.7 g/dl (13.5-17.5); MEAN CORPUSCULAR HEMOGLOBIN 32.2 pg (27.0-33.0); MEAN CORPUSCULAR HGB CONC 34.7 g/dl (32.0-36.5); MEAN CORPUSCULAR VOLUME 92.7 fl (80.0-96.0); PLATELET COUNT, AUTOMATED 155 10^3/uL (150-450); RED BLOOD COUNT 5.19 10^6/uL (4.30-6.10)
[2023-02-01 17:34] LABS: HEMOGLOBIN A1c 5.1 % (4.0-6.0)
[2023-02-01 17:47] LABS: PROSTATIC SPECIFIC AG MONITOR 0.49 NG/ML (< 4.00)
[2023-02-01 17:52] LABS: THYROID STIMULATING HORMONE 4.521 uIU/ML (0.55-4.78); TOTAL 25(OH) VITAMIN D 45.2 NG/ML (20.0-100.0)
[2023-02-01 17:53] LABS: ALBUMIN 4.3 G/DL (3.2-5.2); ALKALINE PHOSPHATASE 93 U/L (46-116); ALT/SGPT 55 U/L (7.0-40); AST/SGOT 24 U/L (<34); BILIRUBIN,TOTAL 0.6 MG/DL (0.3-1.2); BLOOD UREA NITROGEN 15 MG/DL (9-23); CALCIUM LEVEL 9.5 MG/DL (8.5-10.1); CARBON DIOXIDE LEVEL 27 MMOL/L (20-31); CHLORIDE LEVEL 104 MMOL/L (98-107); CHOLESTEROL LEVEL 228 MG/DL (<200); CREATININE FOR GFR 0.96 MG/DL (0.70-1.30); GLOMERULAR FILTRATION RATE > 60.0 (>60); GLUCOSE, FASTING 101 MG/DL (60-100); HDL CHOLESTEROL 45.6 MG/DL (>40); LDL CHOLESTEROL 147.4 MG/DL (<100); NON-HDL-C 182.4 MG/DL; POTASSIUM SERUM 3.9 MMOL/L (3.5-5.1); SODIUM LEVEL 141 MMOL/L (136-145); TESTOSTERONE 308 NG/DL (241-827); TOTAL PROTEIN 8.1 G/DL (5.7-8.2); TRIGLYCERIDES LEVEL 175 MG/DL (<150)
== END ==
LOC: M LAB 16:05
PROVIDERS: ATTEND Family Medicine
DX: I10 Essential (primary) hypertension (principal); R53.83 Other fatigue; E29.1 Testicular hypofunction

== ENCOUNTER 2025-04-02 08:35 | Day surgery (SDC) | payer OTHER ==
[~2025-04-02] VITALS: Ht 170.2 cm; Wt 87.9 kg
[~2025-04-02 08:35] MED LIST changes: +ALBU8.5H; +ALPR1TAB3 PO; +BETA5OI; +CLOT1CRE71; +DYMI137S; +ECOT81TA5 PO; +IBUP600T42 PO; +IBUP80TA PO; +LISI20TA33 PO; +METO1TAB87 PO; +METO50TA7 PO; +NALT50TA4 PO; +NAPR-1405 PO; -NAPR500T6 PO; -OMEP40CA4; +OMEP40CA4 PO; +PRAV40TA85 PO; +TREL1AER; +TREL1AER INH
[2025-04-02] MEDS ORDERED: LIDOCAINE 2% 100 MG/5 ML SDV (FOR ANES.) As Ordered ONE (08:51)
[2025-04-02] MEDS ORDERED: ESMOLOL 100 MG/10 ML VIAL As Ordered ONE (09:17)
[2025-04-02 09:33] VITALS: TEMP 97.2
[2025-04-02 09:48] VITALS: BP 163/100; O2SAT 97
== END 2025-04-02 09:57 | disposition home or self-care (01) ==
LOC: M OPP 08:35
PROVIDERS: ATTEND Surgery
DX: Z12.11 Encounter for screening for malignant neoplasm of colon (principal); K60.2 Anal fissure, unspecified; K57.30 Diverticulosis of large intestine without perforation or abscess without bleeding; Z88.8 Allergy status to other drugs, medicaments and biological substances; Z91.048 Other nonmedicinal substance allergy status; Z79.51 Long term (current) use of inhaled steroids; Z79.899 Other long term (current) drug therapy; F17.290 Nicotine dependence, other tobacco product, uncomplicated
CPT/HCPCS: 45378; J1805